=== PATIENT | male | born 1975 | race Caucasian/White ===

== ENCOUNTER 2019-09-29 15:56 | Emergency (ER) | payer OTHER ==
[2019-09-29 16:28] VITALS: BP 143/93; PULSE 105; TEMP 97.9; BMI 28.1
[2019-09-29] MEDS ORDERED: ACETAMINOPHEN 325 MG TABLET (FP) PO ONE (17:08)
[2019-09-29 17:28] LABS: BASO % 0.5 % (0-2.0); EOS % 1.2 % (0-4.5); HEMATOCRIT 49.5 % (35.4-49); HEMOGLOBIN 16.7 GM/dl (11.7-16.9); LYMPH % 22.5 % (8-40); MCH 30.7 pg (25.7-33.7); MCHC 33.9 g/dl (32.0-35.9); MEAN CELL VOLUME 90.7 fl (80-96); MEAN PLT VOLUME 9.5 fl (7.5-11.1); MONO % 3.9 % (3.8-10.2); NEUT % 71.9 % (42.8-82.8); PLATELET COUNT 230 K/MM3 (134-434); RBC 5.45 M/mm3 (4.00-5.60); RDW 12.5 % (11.9-15.9); WHITE BLOOD COUNT 9.8 K/mm3 (4.0-10.8)
[2019-09-29] MEDS ORDERED: ACETAMINOPHEN 325 MG TABLET (FP) ONE (17:29)
[2019-09-29 17:37] LABS: ACTIVATED PTT 28.1 SECONDS (25.2-36.5)
[2019-09-29 17:38] LABS: ALBUMIN 4.3 g/dl (3.4-5.0); BILIRUBIN,TOTAL 0.8 mg/dl (0.2-1); CALCIUM 9.1 mg/dl (8.5-10); CREATININE 1.2 mg/dl (0.55-1.3); POTASSIUM 4.4 mmol/L (3.5-5.1); TOT PROT 6.5 g/dl (6.4-8.2)
[2019-09-29 17:41] LABS: INR 1.21 (0.82-1.09); PROTHROMBIN TIME (PATIENT) 13.5 SEC (10.2-13.0)
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
[2019-09-29] MEDS ORDERED: ASPIRIN 81 MG CHEWABLE TABLETS PO ONE (17:50)
[2019-09-29] MEDS ORDERED: ASPIRIN 81 MG CHEWABLE TABLETS ONE (17:57)
--- NOTE | 2019-09-30 10:37 | EKG ---
Test Reason : Blood Pressure : / mmHG Vent. Rate : 104 BPM Atrial Rate : 104 BPM P-R Int : 152 ms QRS Dur : 114 ms QT Int : 360 ms P-R-T Axes : 046 -49 140 degrees QTc Int : 473 ms SINUS TACHYCARDIA BIATRIAL ENLARGEMENT INCOMPLETE RIGHT BUNDLE BRANCH BLOCK LEFT ANTERIOR FASCICULAR BLOCK LEFT VENTRICULAR HYPERTROPHY WITH REPOLARIZATION ABNORMALITY CANNOT RULE OUT SEPTAL INFARCT , AGE UNDETERMINED ABNORMAL ECG NO PREVIOUS ECGS AVAILABLE Confirmed by ABBY KING, MICKY ([id number]) on 09/30/2019 10:36:51 AM Referred By: DR DAHL Confirmed By:MICKY MORA MD
== END 2019-09-29 18:53 | disposition left against medical advice (07) ==
LOC: FER 15:56
DX: R10.12 Left upper quadrant pain (principal); D68.9 Coagulation defect, unspecified; F41.9 Anxiety disorder, unspecified; M51.9 Unspecified thoracic, thoracolumbar and lumbosacral intervertebral disc disorder; N20.0 Calculus of kidney; F17.210 Nicotine dependence, cigarettes, uncomplicated
CPT/HCPCS: 36415; 71046-TC-FY; 80053; 82550; 82553; 83690; 84484; 85025; 85379; 85610; 85730; 93005; 99283-25